=== PATIENT | female | born 1945 | race Caucasian/White ===

== ENCOUNTER 2024-03-24 10:50 | Outpatient (CLI) | payer MEDICARE, OTHER | END 2024-03-24 23:59 | disposition critical access hospital (66) | LOC: EMS 10:50 | DX: R55 Syncope and collapse (principal); R51.9 Headache, unspecified; R11.10 Vomiting, unspecified; R41.0 Disorientation, unspecified; W18.39XA Other fall on same level, initial encounter; Y92.009 Unspecified place in unspecified non-institutional (private) residence as the place of occurrence of the external cause | CPT/HCPCS: A0425; A0429 ==

== ENCOUNTER 2024-03-24 11:47 | Emergency (ER) | payer MEDICARE, OTHER ==
--- NOTE | 2024-03-24 12:09 | ED Physician Documentation ---
History of Present Illness - Stated complaint Stated Complaint: GLF/ N/V - Chief complaint Chief Complaint: Trauma Hd/Nk - History obtained from History obtained from: Patient, Family - Additonal information Additional information: 78-year-old female with a past medical history of a prior stroke In 1997 with a right-sided hemiaplegia presents with her via EMS after a fall today. The patient states that she "does not want to talk about it right now," and her did not witness the fall but states that She does have a fall approximately once a month or more frequent. He found her today in the laundry room and it looked like she was getting the vacuum out to vacuum, but she was found flat on her back but awake, no loss of bowel or bladder, no apparent injuries. He got her up and got her into the chair but then she started vomiting quite profusely which was atypical for her and therefore he called EMS. He noted no change in mentation, and she had been in her usual state of health this morning prior to the fall. He does recall they went out to dinner last night so wondered if perhaps she had food poisoning. He has not felt ill, however. Review of Systems Unable to obtain: Confused PD PAST MEDICAL HISTORY - Past Medical History Past Medical History: Yes Cardiovascular: Hypertension Neuro: CVA - Past Surgical History Past Surgical History: Yes Cardiovascular: Coronary stent - Present Medications Home Medications: Ambulatory Orders Medication Instructions Recorded Confirmed Aspirin [[place] Aspirin] 81 mg PO DAILY 03/24/24 03/24/24 Azithromycin [Zithromax] 250 mg PO UD 5 Days #6 tablet 03/24/24 Cefpodoxime Proxetil [Vantin] 200 mg PO BID #10 tablet 03/24/24 Ondansetron Odt [Zofran] 4 mg TL Q6H PRN #10 tablet 03/24/24 - Allergies Allergies/Adverse Reactions: Allergies Allergy/AdvReac Type Severity Reaction Status Date / Time Penicillins Allergy Hives Verified 03/24/24 12:02 - Social History Does the pt smoke?: No Smoking Status: Never smoker Does the pt drink ETOH?: No Does the pt have substance abuse?: No - Immunizations Immunizations are current?: Yes - POLST Patient has POLST: No PD ED PE NORMAL - Vitals Vital signs reviewed: Yes - General General: No acute distress, Well developed/nourished, Other (alert, doesn't want to answer questions on orientation) - HEENT HEENT: Atraumatic, PERRL, EOMI, Moist mucous membranes - Neck Neck: Supple, no meningeal sign, Other (ttp cs) - Cardiac Cardiac: RRR, No murmur - Respiratory Respiratory: No respiratory distress, Clear bilaterally - Abdomen Abdomen: Normal bowel sounds, Soft, Non tender, Non distended - Derm Derm: Normal color, Warm and dry, No rash - Neuro Neuro: Alert and oriented X 3 Eye Opening: Spontaneous Motor: Obeys Commands Verbal: Oriented GCS Score: 15 - Psych Psych: Normal mood, Normal affect Results - Vitals Vitals: Vital Signs - 24 hr 03/24/24 11:50 Temperature 36.8 C Heart Rate 76 Respiratory 17 Rate Blood Pressure 197/73 H O2 Saturation 99 Oxygen O2 Source Room air - EKG (time done) No standard instances EKG releavant findings:: EKG personally interpreted by author of this note. Relevant findings are: Rate: Rate (enter#) (79) Rhythm: NSR Intervals: Normal GA QRS: Normal Ischemia: Non specific changes Computer interpretation: Agree with computer - Labs Labs: Laboratory Tests 03/24/24 03/24/24 03/24/24 12:14 12:14 12:14 WBC 13.9 H RBC 4.70 Hgb 14.4 Hct 46.0 MCV 97.9 MCH 30.6 MCHC 31.3 L RDW 13.8 Plt Count 180 MPV 10.6 Neut # (Auto) Not Reportable Lymph # (Auto) Not Reportable [place] # (Auto) Not Reportable Eos # (Auto) Not Reportable Baso # (Auto) Not Reportable Absolute Nucleated RBC Not Reportable Total Counted 100 Band Neuts % (Manual) 8 Abnorm Lymph % (Manual) 0 Nucleated RBC % Not Reportable Neutrophils # (Manual) 10.6 H Lymphocytes # (Manual) 2.2 Monocytes # (Manual) 1.1 H Eosinophils # (Manual) 0.0 Basophils # (Manual) 0.0 Differential Comment MANUAL DIFFERENTIAL Manual Slide Review Indicated RBC Morph Micro Appear 1+ ANISOCYTOSIS PT 11.1 INR 1.0 Sodium 137 Potassium 4.4 Chloride 102 Carbon Dioxide 20 L Anion Gap 15.0 H BUN 31 H Creatinine 0.8 Estimated GFR (MDRD) 69 L Glucose 139 H Calcium 9.9 Total Bilirubin 0.4 AST 32 ALT 22 Alkaline Phosphatase 60 Troponin I High Sens Total Protein 7.9 Albumin 4.3 Globulin 3.6 Albumin/Globulin Ratio 1.2 Lipase 49 Urine Color Urine Clarity Urine pH Ur Specific [place] Urine Protein Urine Glucose (UA) Urine Ketones Urine Occult Blood Urine Nitrite Urine Bilirubin Urine Urobilinogen Ur Leukocyte Esterase Urine RBC Urine WBC Ur Squamous Epith Cells Urine Bacteria Ur Microscopic Review Urine Culture Comments 03/24/24 03/24/24 12:14 13:34 WBC RBC Hgb Hct MCV MCH MCHC RDW Plt Count MPV Neut # (Auto) Lymph # (Auto) [place] # (Auto) Eos # (Auto) Baso # (Auto) Absolute Nucleated RBC Total Counted Band Neuts % (Manual) Abnorm Lymph % (Manual) Nucleated RBC % Neutrophils # (Manual) Lymphocytes # (Manual) Monocytes # (Manual) Eosinophils # (Manual) Basophils # (Manual) Differential Comment Manual Slide Review RBC Morph Micro Appear PT INR Sodium Potassium Chloride Carbon Dioxide Anion Gap BUN Creatinine Estimated GFR (MDRD) Glucose Calcium Total Bilirubin AST ALT Alkaline Phosphatase Troponin I High Sens 13.4 Total Protein Albumin Globulin Albumin/Globulin Ratio Lipase Urine Color YELLOW Urine Clarity CLEAR Urine pH 7.5 Ur Specific [place] 1.020 Urine Protein TRACE Urine Glucose (UA) 100 H Urine Ketones 15 H Urine Occult Blood SMALL H Urine Nitrite NEGATIVE Urine Bilirubin NEGATIVE Urine Urobilinogen 0.2 (NORMAL) Ur Leukocyte Esterase NEGATIVE Urine RBC 0-5 Urine WBC 0-3 Ur Squamous Epith Cells RARE Squamous Urine Bacteria None Seen Ur Microscopic Review INDICATED Urine Culture Comments NOT INDICATED - Rads (name of study) No standard instances Relevant Findings:: Final report received PD Medical Decision Making - ED course Complexity details: reviewed results, re-evaluated patient, considered differential, d/w patient ED course: 78-year-old female presented after a fall at home as described in HPI. The patient does have a history of stroke and history is difficult to obtain from her, and did not witness the fall for differential is broad including cardiac event, stroke, TIA, seizure, trip and fall, orthostasis, illness. There was concern for intracranial injury given her vomiting and fall therefore proceed with a head CT which showed no acute findings. The patient does have a number of chronic findings as listed in the CT scan. Labs were notable for White blood seconded 13.9, chemistry showed a BUN of 31 up from normal, gap of 15, no other acute findings. Initially she had a CT of her head and cervical spine which were stable, but she had ongoing vomiting and given her elevated lipids, I did proceed with a CT abdomen pelvis which showed possible pneumonia, the patient has not had a cough or URI symptoms recently. She also had some stenosis of the vasculature. Patient is at baseline mentation and has no new deficits at this time and no other complaints therefore I do believe she is stable for discharge home. I recommended that we do treat her for possible pneumonia even though she does not have any cough or fever, given the findings on the CT today. I recommended that they follow-up with primary doctor in the next week or so to ensure improvement, and return precautions reviewed if she developed any new or worsening symptoms. Encouraged her to stay well-hydrated, and move slowly with the assistance whenever possible. If she has recurrent falls, patient to return to the ER. Departure - Departure Disposition: 01 Home, Self Care Clinical Impression: Ground-level fall Nausea and vomiting Qualifiers: Vomiting type: unspecified Qualified Code(s): R11.2 - Nausea with vomiting, unspecified Community acquired pneumonia Qualifiers: Laterality: unspecified laterality Qualified Code(s): J18.9 - Pneumonia, unspecified organism Condition: Good Instructions: ED Pneumonia Adult, ED Nausea Vomiting Prescriptions: Cefpodoxime Proxetil [Vantin] 200 mg PO BID #10 tablet Azithromycin [Zithromax] 250 mg PO UD 5 Days #6 tablet Ondansetron Odt [Zofran] 4 mg TL Q6H PRN #10 tablet PRN Reason: Nausea / Vomiting Comments: Your head CT Did not show any acute stroke or bleeding. It is possible that You may have a mild concussion from your fall but nothing was seen on the CT scans. There was a possible pneumonia seen on your abdominal ct therefore I recommend that we treat you for possible pneumonia with antibiotics which were sent to your pharmacy. The labs are otherwise stable and her vital signs here were good. Please continue your regular medication, and monitor closely. If any new or worsening symptoms, return to the ER. Forms: PCP List Discharge Date/Time: 03/24/24 16:49
[2024-03-24 12:13] VITALS: BP 197/73; O2SAT 99
[2024-03-24 12:28] LABS: BASOPHILS % (AUTO) 0.5 %; EOSINOPHILS % (AUTO) 0.9 %; HGB - HEMOGLOBIN 14.4 g/dL (12.0-16.0); LYMPHOCYTES % (AUTO) 12.9 %; MEAN CORPUSCULAR HEMOGLOBIN 30.6 pg (27.0-31.0); MEAN CORPUSCULAR HGB CONC 31.3 g/dL (32.0-36.0); MEAN CORPUSCULAR VOLUME 97.9 fL (81.0-99.0); MEAN PLATELET VOLUME 10.6 fL (7.9-10.8); MONOCYTES % (AUTO) 5.8 %; NEUTROPHILS % (AUTO) 79.3 %; PLT - PLATELET COUNT 180 10^3/uL (130-450); RED CELL DISTRIBUTION WIDTH 13.8 % (12.0-15.0); WHITE BLOOD COUNT 13.9 x10^3/uL (4.8-10.8)
[2024-03-24 12:38] LABS: ABNORMAL LYMPHS % (MANUAL) 0 %
[2024-03-24 13:13] LABS: SLIDE REVIEW? Indicated
[2024-03-24 13:16] LABS: PT - PROTHROMBIN TIME 11.1 secs (9.9-12.6)
[2024-03-24 13:18] LABS: BAND NEUTROPHILS % (MANUAL) 8 %; DIFFERENTIAL COMMENT MANUAL DIFFERENTIAL; LYMPHOCYTES # (MANUAL) 2.2 10^3/uL (1.5-3.5); LYMPHOCYTES % (MANUAL) 16 %; MONOCYTES # (MANUAL) 1.1 10^3/uL (0.0-1.0); NEUTROPHILS # (MANUAL) 10.6 10^3/uL (1.5-6.6); RBC MORPHOLOGY (MULTIPLE) 1+ ANISOCYTOSIS (NORMAL)
[2024-03-24 13:21] LABS: ALBUMIN 4.3 g/dL (3.2-5.5); ALBUMIN/GLOBULIN RATIO 1.2 (1.0-2.2); BILIRUBIN,TOTAL 0.4 mg/dL (0.2-1.0); CALCIUM 9.9 mg/dL (8.5-10.3); CREATININE 0.8 mg/dL (0.6-1.3); POTASSIUM 4.4 mmol/L (3.5-4.5); TOTAL PROTEIN 7.9 g/dL (6.4-8.9)
[2024-03-24] MEDS: ONDANSETRON 4 MG/2 ML VIAL IVP STA (13:21)
--- NOTE | 2024-03-24 13:24 | CT Report ---
PROCEDURE: Head WO INDICATIONS: fall, prior stroke TECHNIQUE: Noncontrast 4.5 mm thick angled axial sections acquired from the foramen magnum to the vertex. For r adiation dose reduction, the following was used: automated exposure control, adjustment of mA and/or kV according to patient size. COMPARISON: None. FINDINGS: Image quality: Motion artifact. CSF spaces: Basal cisterns are patent. No extra-axial fluid collections. Ventricles are normal in size and shape. Brain: No midline shift. Encephalomalacia and gliosis within the left frontal lobe, consistent with prior infarct. Age-related global volume loss and chronic microvascular ischemic changes. Intracrani al atherosclerotic vascular calcifications. No intracranial masses or hemorrhage. Burden-white matter interface is normal. Skull and face: Calvarium and visualized facial bones are intact, without suspicious lesions. Sinuses: Visualized sinuses and mastoids are clear. IMPRESSION: 1.Motion artifact limits evaluation of the superior brain. Within these limitations, no acute intracr anial pathology. 2.Sequela of prior left frontal lobe infarct. Reviewed by: Hernandez An MD on 03/24/2024 1:22 PM PDT Approved by: Hernandez An MD on 03/24/2024 1:22 PM PDT Station ID: [id number]
--- NOTE | 2024-03-24 13:25 | CT Report ---
PROCEDURE: Cervical Spine WO INDICATIONS: fall w/ cs ttp TECHNIQUE: Noncontrast 3 mm thick sections acquired from the skull base to the T4 level. Sagittal and coronal r eformats were then constructed. For radiation dose reduction, the following was used: automated exp osure control, adjustment of mA and/or kV according to patient size. COMPARISON: None. FINDINGS: Image quality: Excellent. Bones: No fractures or dislocations. Straightening of the normal cervical lordosis. Multilevel degen erative changes of the cervical spine with facet and uncovertebral arthropathy, disc height loss, end plate degenerative changes and spurring. Visualized superior ribs are intact. Soft tissues: Prevertebral soft tissues are normal in thickness. No paravertebral hematomas. No ap ical pneumothoraces. IMPRESSION: No acute, displaced fracture or traumatic subluxation. Reviewed by: Hernandez An MD on 03/24/2024 1:24 PM PDT Approved by: Hernandez An MD on 03/24/2024 1:24 PM PDT Station ID: [id number]
[2024-03-24 13:45] LABS: BILIRUBIN,URINE NEGATIVE (NEGATIVE); GLUCOSE, URINE (UA) 100 mg/dL (NEGATIVE); KETONES,URINE (UA) 15 mg/dL (NEGATIVE); LEUKOCYTE ESTERASE, URINE NEGATIVE (NEGATIVE); NITRITE,URINE NEGATIVE (NEGATIVE); OCCULT BLOOD,URINE SMALL (NEGATIVE); PH,URINE 7.5 PH (5.0-7.5); PROTEIN,URINE TRACE mg/dL (NEGATIVE); UROBILINOGEN,URINE 0.2 (NORMAL) E.U./dL (NORMAL)
[2024-03-24] MEDS: SODIUM CHLORIDE 0.9% 1,000 ML IV STA (13:48)
[2024-03-24 13:50] LABS: CLARITY,URINE CLEAR (CLEAR)
[2024-03-24 14:11] LABS: BACTERIA,URINE None Seen /HPF (None Seen); RBC,URINE 0-5 /HPF (0-5); SQUAMOUS EPITHELIAL CELL,UR RARE Squamous (<= Few); WBC,URINE 0-3 /HPF (0-5)
[2024-03-24] MEDS ORDERED: iohexoL-300 100 ML VIAL ONE (14:46)
[2024-03-24] MEDS: iohexoL-300 100 ML VIAL IVP ONE (15:34)
--- NOTE | 2024-03-24 15:57 | CT Report ---
PROCEDURE: Abdomen/Pelvis W INDICATIONS: n/v/abd pain CONTRAST: Omni 300 100ml TECHNIQUE: After the administration of intravenous contrast, a CT scan of the abdomen and pelvis was performed. Images were recorded and evaluated at appropriate window settings. Reformats: coronal and sagittal. F or radiation dose reduction, the following was used: automated exposure control, adjustment of mA and /or kV according to patient size. COMPARISON: None. FINDINGS: Image quality: Diagnostic. Lower chest: Consolidative opacities involving the right lower and middle lobes and to a lesser exten t the left lower lobe. Liver: No solid mass. Gallbladder: No radiopaque stones or wall thickening. Biliary tree: No intrahepatic or extrahepatic dilation, accounting for age. Spleen: No splenomegaly. Pancreas: No pancreatic ductal dilation. Adrenals: Left adrenal nodule measuring approximately 1 cm. Kidneys and ureters: No hydronephrosis. No renal cystic lesion which requires follow up. No solid mas s. Stomach, bowel and peritoneum: No gastric or small bowel dilation. No abnormal wall thickening. No pa thologic free fluid. Diverticulosis without evidence of diverticulitis. Normal appendix. Lymph nodes: No central or retroperitoneal adenopathy. Vessels: No infrarenal aortic aneurysm. Severe atherosclerotic vascular calcifications with complete stenosis of the right internal iliac at its takeoff. Loss of opacification of the distal vessels. Mod erate stenosis of the left superficial femoral artery were visualized.. Patent portal vein. PELVIS Reproductive organs: Unremarkable. Bladder: No abnormal wall thickening, accounting for underdistention. Pelvic lymph nodes: No pelvic adenopathy by size criteria. Bones: No aggressive osseous abnormality. Right hip arthroplasty. Decreased osseous mineralization. D egenerative changes of the spine. Other: No significant ventral or inguinal hernia. IMPRESSION: 1.Consolidative opacities at the bilateral lung bases, right greater than left, concerning for pneumo je. 2.Severe atherosclerotic vascular calcifications with complete stenosis of the right internal iliac a rtery at its takeoff without reconstitution of the visualized distal arteries. Moderate stenosis of t he visualized left superficial femoral artery. 3.Diverticulosis without evidence of acute diverticulitis. 4.Indeterminate left adrenal nodule measuring 1 cm. Reviewed by: Hernandez An MD on 03/24/2024 3:55 PM PDT Approved by: Hernandez An MD on 03/24/2024 3:55 PM PDT Station ID: [id number]
== END 2024-03-24 16:49 | disposition home or self-care (01) ==
LOC: EDUNIT# → ED 11:47
DX: J18.9 Pneumonia, unspecified organism (principal); W18.39XA Other fall on same level, initial encounter; I69.951 Hemiplegia and hemiparesis following unspecified cerebrovascular disease affecting right dominant side; I10 Essential (primary) hypertension; Z79.82 Long term (current) use of aspirin; Z79.899 Other long term (current) drug therapy
CPT/HCPCS: 36415; 70450; 72125; 74177; 80053; 81001; 83690; 84484; 85025; 85610; 93005; 99284; Q9967; 81003; 87086